=== PATIENT | female | born 1935 | race Asian ===

== ENCOUNTER → 2018-07-23 | Outpatient (CLI) | payer MEDICARE ==
[~2018-07-23] MED LIST: AMLO2.5T5 PO; CEFD300C37 PO; EMPA10TA PO; FLUC100T PO; GLYB5TAB3 PO; INSU100I28 SQ-INSULIN; INSU100V5 SQ-INSULIN; LINA5TAB PO; LISI-170 PO; LISI1TAB5; METF500T17 PO; METF500T27; PRAV40TA2 PO; SIMV20TA3
[2018-07-23 10:14] LABS: CULTURE INDICATED? YES; MICROSCOPIC AUTO
[2018-07-23 10:20] LABS: ALANINE AMINOTRANSFERASE 15 U/L (12-78); ALBUMIN 3.7 g/dL (3.4-5.0); ANION GAP 7 mmol/L (5-15); CALCIUM 8.7 mg/dL (8.5-10.1); CHLORIDE 111 mmol/L (98-107); CREATININE 0.78 mg/dL (0.55-1.02)
[2018-07-23 10:22] LABS: ALKALINE PHOSPHATASE 63 U/L (45-117); BILIRUBIN,TOTAL 1.1 mg/dL (0.2-1.0); TOTAL PROTEIN 7.3 g/dL (6.4-8.2)
== END | disposition home or self-care (01) ==
LOC: STAR 09:00
PROVIDERS: ATTEND Specialist
DX: Z01.818 Encounter for other preprocedural examination (principal); R93.89 Abnormal findings on diagnostic imaging of other specified body structures
CPT/HCPCS: 36415; 80053; 81001; 87086; 93005

== ENCOUNTER 2018-07-28 11:32 | Day surgery (SDC) | payer MEDICARE ==
[~2018-07-28] VITALS: Ht 160 cm; Wt 48.4 kg
[2018-07-28] MEDS ORDERED: LACTATED RINGERS 1,000 ML IV SCH (11:59)
[2018-07-28 12:04] VITALS: BP 185/88
[2018-07-28] MEDS ORDERED: BUPIVACAINE/PF 0.25% ONE (12:39)
[2018-07-28] MEDS ORDERED: PROPOFOL 10 MG/ML, 20ML ONE (13:44)
[2018-07-28] MEDS ORDERED: HYDROmorphone 2 MG/ML, 1ML IVPush PRN (14:30)
[2018-07-28] MEDS ORDERED: hydrALAzine 20 MG/ML, 1ML IV PRN (14:30)
[2018-07-28] MEDS ORDERED: HALOPERIDOL 5 MG/ML IV PRN (14:30)
[2018-07-28] MEDS ORDERED: FENTANYL PF 100 MCG/2ML IV PRN (14:30)
[2018-07-28] MEDS ORDERED: PROMETHAZINE 25 MG/ML, 1ML IV PRN (14:30)
[2018-07-28] MEDS ORDERED: LABETALOL 5MG/ML, 20ML IV PRN (14:30)
[2018-07-28] MEDS ORDERED: OXYcodone 5 MG/5 ML ORAL.SOL UDC PO PRN (14:30)
[2018-07-28] MEDS ORDERED: ALBUTEROL SULFATE 2.5 MG/3 ML NPPB PRN (14:30)
== END 2018-07-28 16:00 | disposition home or self-care (01) ==
LOC: OR 11:32
PROVIDERS: ATTEND Specialist
DX: N88.2 Stricture and stenosis of cervix uteri (principal); N81.3 Complete uterovaginal prolapse; E11.9 Type 2 diabetes mellitus without complications; I10 Essential (primary) hypertension; E78.5 Hyperlipidemia, unspecified; Z79.84 Long term (current) use of oral hypoglycemic drugs; Z79.82 Long term (current) use of aspirin; Z79.899 Other long term (current) drug therapy; Z86.010 Personal history of colon polyps; Z98.890 Other specified postprocedural states; Z82.49 Family history of ischemic heart disease and other diseases of the circulatory system
CPT/HCPCS: 58558; 82962; 88305; J2704; J3490; J7120

== ENCOUNTER 2018-09-25 10:08 | Outpatient (CLI) | payer MEDICARE | END 2018-09-25 23:59 | disposition home or self-care (01) | LOC: STAR 10:08 | PROVIDERS: ATTEND Specialist | DX: Z01.818 Encounter for other preprocedural examination (principal); N95.0 Postmenopausal bleeding; N81.4 Uterovaginal prolapse, unspecified | CPT/HCPCS: 93005 ==